=== PATIENT | male | born 1985 | race Caucasian/White ===

== ENCOUNTER 2016-12-15 21:40 | Emergency (ER) | payer OTHER ==
[~2016-12-15] VITALS: Ht 190.5 cm; Wt 111.1 kg
[2016-12-15 21:48] VITALS: BP 150/108
--- NOTE | 2016-12-15 22:09 | ED GENERAL ADULT ---
History of Present Illness General Chief Complaint: General Adult Stated Complaint: MCMAHON/NECK PAIN/BLURRED VISION/+N Source: patient Exam Limitations: no limitations Vital Signs & Intake/Output Vital Signs & Intake/Output Vital Signs Date Time Temp Pulse Resp B/P Pulse O2 O2 Flow FiO2 Ox Delivery Rate 12/15 2148 98.7 94 18 150/108 97 Room Air ED Intake and Output 12/16 0000 12/15 1200 Intake Total Output Total Balance Patient 245 lb Weight Allergies Coded Allergies: No Known Allergies (12/15/16) Reconcile Medications Metoclopramide HCl (Reglan) 10 MG TABLET 1 TAB PO Q6-8 PRN nausea/headache Triage Note: PT TO TRIAGE WITH C/O HEADACHE STARTED ON 12/13 AND PROGRESSIVELY GOT WORSE 06/20 NOW, NECK STIFFNESS SINCE THIS MORNING, PHOTOSENSITIVITY, BLURRED VISION,NAUSEA, [id number]. PT DENIES CHEST PAIN, DENIES ABD PAIN, DENIES SOB. VSS. HX OF DEPRESSION. Triage Nurses Notes Reviewed? yes HPI: Patient is a 31-year-old male presents complaining of headache, neck stiffness, photophobia, nausea. Symptoms 2 days. Patient reports that he has had similar headaches previously, has had a CT scan and MRI for evaluation of his headaches. Patient reports he took Tylenol and aspirin today with no improvement. Headache is currently severe, worsens with light and noise. Patient denies known fevers, vomiting, extremity numbness, extremity weakness. (MARLENA RODRIGUEZ) Past History Travel History Traveled to [place] past 21 day No Medical History Any Pertinent Medical History? see below for history Psychiatric: depression Surgical History Surgical History: non-contributory Psychosocial History What is your primary language Bol[place]ian Tobacco Use: Never used ETOH Use: denies use Illicit Drug Use: denies illicit drug use Family History Hx Contributory? No (MARLENA RODRIGUEZ) Review of Systems Review of Systems Constitutional: Denies: chills, fever. EENTM: Reports: no symptoms. Respiratory: Denies: cough, short of breath. Cardiovascular: Denies: chest pain. GI: Reports: nausea. Denies: abdominal pain, vomiting. Genitourinary: Reports: no symptoms. Musculoskeletal: Reports: neck pain. Denies: back pain. Skin: Reports: no symptoms. Neurological/Psychological: Reports: headache. Hematologic/Endocrine: Reports: no symptoms. Immunologic/Allergic: Reports: no symptoms. (MARLENA RODRIGUEZ) Physical Exam Physical Exam General Appearance: well developed/nourished, alert, awake Head: atraumatic, normal appearance Eyes: Bilateral: normal appearance, PERRL, EOMI. Ears, Nose, Throat: normal pharynx, normal ENT inspection, hearing grossly normal Neck: normal inspection, supple, full range of motion, negative Kernig's or Brudzinski's sign Respiratory: normal breath sounds, chest non-tender, no respiratory distress, lungs clear Cardiovascular: regular rate/rhythm Gastrointestinal: soft, non-tender Back: normal inspection, normal range of motion Extremities: normal inspection, normal capillary refill, normal range of motion, no edema Neurologic/Psych: no motor/sensory deficits, awake, alert, oriented x 3, normal gait, normal mood/affect Skin: intact, normal color, warm/dry Lymphatic: no anterior cervical stiven Core Measures ACS in differential dx? No CVA/TIA Diagnosis: No Severe Sepsis Present: No Septic Shock Present: No (MARLENA RODRIGUEZ) Progress Differential Diagnoses I considered the following diagnoses in my evaluation of the patient: migraine, cluster headache, tension headache, meningitis, intracranial bleed, intracranial infection. Plan of Care: Current Medications Sig/Amy Start time Last Medication Dose Stop Time Status Admin Ketorolac 30 MG ONCE ONE 12/15 2214 UNVr Tromethamine 12/15 2215 (Toradol) Metoclopramide HCl 10 MG ONCE ONE 12/15 2214 UNVr (Reglan) 12/15 2215 Sodium Chloride 1,000 ML BOLUS ONE 12/15 2214 UNVr (Normal Saline 0.9%) 12/15 2313 2310: Patient reports significant improvement in symptoms after reglan and toradol. No acute neurologic abnormalities. No signs of infection. Headache consistent with previous headaches. Appears stable for discharge and outpatient follow up. (MARLENA RODRIGUEZ) Initial ED EKG: none (MARLENA RODRIGUEZ) Departure Departure Time of Disposition: 2312 Disposition: HOME OR SELF CARE Condition: Stable Clinical Impression Primary Impression: Migraine headache Qualifiers: Migraine type: unspecified Status migrainosus presence: without status migrainosus Intractability: not intractable Qualified Code: G43.909 - Migraine, unspecified, not intractable, without status migrainosus Referrals: ZOHRA MARIE MD (PCP/Family) Additional Instructions: Follow up with your primary doctor within 1 week for further evaluation. Return to the ER if fevers, numbness, weakness, increasing neck stiffness or worsening of symptoms. Departure Forms: Customer Survey General Discharge Information Prescriptions: Current Visit Scripts Metoclopramide HCl (Reglan) 1 TAB PO Q6-8 PRN nausea/headache #12 TAB (MARLENA RODRIGUEZ) PA/SUPPORT SERVICES MANAGER Co-Sign Statement Statement: ED Attending supervision documentation- [] I saw and evaluated the patient. I have also reviewed all the pertinent lab results and diagnostic results. I agree with the findings and the plan of care as documented in the PA's/SUPPORT SERVICES MANAGER's documentation. x I have reviewed the ED Record and agree with the PA's/SUPPORT SERVICES MANAGER's documentation. [] Additions or exceptions (if any) to the PAs/SUPPORT SERVICES MANAGER's note and plan are summarized below: [] (CATHERINE KOHLI,NELDA) Critical Care Note Critical Care Note Critical Care Time: non-applicable (MARLENA RODRIGUEZ)
[2016-12-15] MEDS ORDERED: REGLAN10 M1 PO (23:15)
== END 2016-12-15 23:21 ==
LOC: ERH 21:40
DX: G43.909 Migraine, unspecified, not intractable, without status migrainosus (principal)
CPT/HCPCS: 96374; 96375; J1885; J2765